=== PATIENT | male | born 1985 | race Caucasian/White ===

== ENCOUNTER 2022-05-01 15:01 | Outpatient (CLI) | payer OTHER, SELFPAY ==
--- NOTE | 2022-05-01 14:00 | CRLHL7_ITS ---
For Patients: As a result of the Century Cures Act, medical imaging exams and procedure reports are released immediately into your electronic medical record. You may view this report before your referring provider. If you have questions, please contact your health care provider. INDICATION: Chest pain, history of metastatic colon cancer, recent coated infection. TECHNIQUE: CT chest PE was acquired with 100 cc Omnipaque 350 IV contrast. COMPARISON: July 07, 2020. FINDINGS: Heart and vasculature: Contrast opacification of the pulmonary arterial tree is adequate. No sign of pulmonary embolism. Heart size is normal. Thoracic aorta and pulmonary artery are normal in caliber. Lungs and pleura: Biapical scarring. Re-demonstration of scattered blebs/pneumatoceles, some which appear mildly increased in size, for example with interval increase of wall soft tissue thickening about the lingular pneumatocele (series 5, image 145). Few tiny scattered sub 4 millimeter pulmonary nodules, unchanged since prior study. No pleural effusions, pleural thickening, or pneumothorax. Lymph nodes/mediastinum: No mediastinal, hilar, or axillary adenopathy. Chest wall: Right chest wall port with catheter terminating in the SVC. Upper abdomen: Redemonstration of ill-defined hypodense lesions throughout the liver, incompletely characterized on this arterial phase study, some with surgical clip/calcifications. Bones: Similar rounded sclerotic lesion in the T12 vertebral body. IMPRESSION: No pulmonary embolism, as questioned. Redemonstration of scattered blebs, which appear mildly increased in size, including interval increase of lingular lesion with thickened nur. Recommend correlation with prior imaging if available, and continue surveillance in this patient with known metastatic colon cancer. Partial visualization of ill-defined hypodense lesions throughout the liver, some with calcifications/surgical clips. Recommend correlation with prior imaging if available and continued surveillance in this patient with known metastatic colon cancer. Please note that all CT scans at this facility use dose modulation, iterative reconstruction, and/or weight-based dosing when appropriate to reduce radiation dose to as low as reasonably achievable. 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 Dictated by Rodney Rose MD @ May 10 2022 12:34AM Signed by:?Rodney Rose MD @05/01/2022 4:14:34 PM (Electronic Signature)
== END 2022-05-01 15:02 | disposition home or self-care (01) ==
PROVIDERS: Visit Provider Emergency Medicine
DX: R07.89 Other chest pain (principal); K76.9 Liver disease, unspecified; M54.6 Pain in thoracic spine
CPT/HCPCS: 71260; Q9967

== ENCOUNTER 2024-05-29 11:10 | Outpatient (CLI) | payer OTHER, SELFPAY | END 2024-05-29 11:11 | disposition home or self-care (01) | LOC: NFLDREF 06-01 20:39 | PROVIDERS: PCP Family Medicine; Referring Provider Family Medicine; Visit Provider Physician Assistant Medical | DX: R50.9 Fever, unspecified (principal); R82.90 Unspecified abnormal findings in urine | CPT/HCPCS: 87086 ==